=== PATIENT | male | born 1975 | race Caucasian/White ===

== ENCOUNTER → 2021-12-01 14:21 | Outpatient (BNVA) | payer MEDICARE, MEDICAID, SELFPAY | PROVIDERS: PCP Physician Assistant; Visit Provider Specialist | DX: G10 Huntington's disease (principal); G47.52 REM sleep behavior disorder | CPT/HCPCS: 99205 ==

== ENCOUNTER → 2022-07-19 09:38 | Outpatient (BNVA) | payer MEDICARE, MEDICAID, SELFPAY | PROVIDERS: PCP Physician Assistant; Visit Provider Specialist | DX: G10 Huntington's disease (principal); F98.8 Other specified behavioral and emotional disorders with onset usually occurring in childhood and adolescence; G47.52 REM sleep behavior disorder | CPT/HCPCS: 99214 ==

== ENCOUNTER 2022-09-25 09:18 | Emergency (ER) | payer MEDICARE, MEDICAID, SELFPAY ==
[2022-09-25 09:26] VITALS: BP 124/77; PULSE 98; RESP 14; TEMP 38.2; O2SAT 97
--- NOTE | 2022-09-25 09:42 | ED_ITS ---
HPI - Fever General: Chief Complaint: Fever Stated Complaint: sore throat Time Seen by Provider: 09/25/22 09:27 History of Present Illness: Patient is a 47-year-old male comes to the ED with fever. For the past 2 days patient has had a very sore throat, fevers and a headache. Denies any other symptoms. He has been able to keep p.o. food and fluids down and denies any vomiting. Associated symptoms: Deny abdominal pain, flank pain, chills, chest pain, diarrhea, dysuria, headache(s), nasal congestion, nausea or vomiting Review of Systems Const: Reports: fever(s); Denies: chills or fatigue Eyes: Denies: change in vision or eye discomfort ENMT: Reports: throat pain; Denies: odynophagia, nasal discharge or nasal congestion Card: Denies: chest pain, palpitations, edema, swelling of feet/ankles, dyspnea on exertion or orthopnea Resp: Denies: dyspnea, productive cough or non-productive cough GI: Denies: abdominal pain, nausea, vomiting, diarrhea, constipation or hematochezia : Denies: flank pain, difficulty urinating, dysuria or hematuria Musc: Denies: neck pain, back pain or extremity swelling Skin/Breast: Denies: rash or new lesions Neuro: Denies: headache(s), numbness in extremities or weakness in extremities PFS ED PFSH: Medical History Jake chorea Surgical History No pertinent past surgical history Social History Smoking and tobacco status: never smoked Physical Exam Const: COMMON NORMALS: patient oriented x3 and alert GENERAL APPEARANCE: cooperative HENMT: COMMON NORMALS: normocephalic HEAD & SCALP: normocephalic MOUTH: Normal oral and palatal mucosa present THROAT: uvula midline and posterior oropharynx abnormal erythema Neck/C-Spine: COMMON NORMALS: supple GENERAL: Yes normal visual inspection Resp: COMMON NORMALS: normal respiratory effort, No retractions, No use of accessory muscles and clear to auscultation bilaterally AUSCULTATION: clear to auscultation bilaterally Cardio: COMMON NORMALS: regular rate, regular rhythm, S1 normal heart sound present, S2 normal heart sound present, No gallops present (Cardio), No clicks present (Cardio), No murmurs present (Cardio) and Peripheral pulses 2+ throughout RATE: regular rate RHYTHM: regular rhythm HEART SOUNDS: S1 normal heart sound present and S2 normal heart sound present PERIPHERAL PULSES: Peripheral pulses 2+ throughout GI: COMMON NORMALS: Normal to inspection, nondistended, normoactive bowel sounds present, Soft to palpation, non-tender and no masses PALPATION: Yes Soft to palpation : COMMON NORMALS: Yes no CVA tenderness BLADDER/KIDNEY EXAM: Yes no CVA tenderness Back/Pelvis: COMMON NORMALS: no CVA tenderness Extremity: COMMON NORMALS: normal to inspection Neuro: COMMON NORMALS: patient oriented x3 SENSORIUM/ORIENTATION: Yes alert GAIT: Yes Normal gait present Skin: GENERAL SKIN EXAM: dry skin Course Vital Signs: Vital signs: Vital Signs Temperature 100.8 F H 09/25/22 09:26 Pulse Rate 98 09/25/22 09:26 Respiratory Rate 14 09/25/22 09:26 Blood Pressure 124/77 09/25/22 09:26 Pulse Oximetry 97 09/25/22 09:26 Oxygen Delivery Me thod 09/25/22 09:26 MDM - Fever Medical Decision Making Patient is a 47-year-old male comes to the ED with a fever and sore throat. Patient has a temperature of 100.8 but the rest of vitals are stable. Exam shows some posterior oropharynx erythema, but the rest of exam is benign. Strep and influenza are negative. COVID is positive. He was given a dose of Tylenol and prednisone here in the ED. Patient diagnosed with COVID-19 and discharged home with a prescription for prednisone. Told to follow-up with PCP in the next week for reevaluation. Return to ED precautions given. Patient understood agree with plan. Lab Data I reviewed the patient's lab results. Laboratory Results Influenza Type A Ag negative (Negative) 09/25/22 09:45 Influenza Type B Ag negative (Negative) 09/25/22 09:45 SARS-CoV-2 Ag (Rapid) positive (Negative) 09/25/22 09:45 Group A Strep Rapid Negative (Negative) 09/25/22 09:48 Discharge Plan Discharge Patient Disposition: Home Clinical Impression: COVID-19 Condition: Stable Prescriptions: New Medrol (Brandon) 4 mg tablets,dose pack See Rx Instructions .ROUTE .COMPLEX Qty: 21 0RF Rx Instructions: orally per package directions No Action lisinopril 10 mg tablet 10 mg PO DAILY olanzapine [Zyprexa] 5 mg tablet 5 mg PO DAILY 30 Days Qty: 30 3RF Rx Instructions: Take at bedtime tetrabenazine 12.5 mg tablet 12.5 mg PO BID Qty: 60 4RF clonazepam [Klonopin] 1 mg tablet 1 mg PO DAILY Qty: 30 5RF Discharge Orders: Discharge ED (Routine); Ordered 09/25/22 Ordered By: José Mcnair Referrals: Dara Meadows PA [Primary Care Provider] - Discharge Diet: Regular Discharge Activity: Increase activity as tolerated Patient Instructions: COVID-19 (Coronavirus Disease 2019) (ED) Activity Restrictions/Additional Instructions: Follow-up with medical provider as directed in the next 7 to 10 days for reevaluation. Take medications as prescribed. Return to the ER or your medical provider if condition worsens. Please read and understand discharge inst ructions. Thank you for choosing [facility] for your healthcare needs today. Please realize this is an emergency room and that we are providing you with a medical screening exam and this may not be complete and all inclusive of all the testing and or work up that you may need to determine your ailment or severity of your illness. It is very important that you follow up as instructed or that you return to the Emergency Department should you have concerns or if your condition changes or worsens in any way. Coding Level of Care Code ED Apartment [employer]oundskeeper for Kennedy Salazar Exam Comprehensive
[2022-09-25] MEDS: acetaminophen 500 mg Tablet 1000 MG PO (09:51)
[2022-09-25 10:23] LABS: Rapid Strep A Test Negative (Negative)
[2022-09-25 10:29] LABS: SARS Covid-2 Antigen positive (Negative)
[2022-09-25 10:30] LABS: Influenza A by IFA negative (Negative); Influenza B by IFA negative (Negative)
[2022-09-25] MEDS: predniSONE 20 mg Tablet 60 MG PO (10:55)
== END 2022-09-25 11:00 | disposition home or self-care (01) ==
PROVIDERS: Emergency Provider Physician Assistant; PCP Physician Assistant
DX: U07.1 COVID-19 (principal)
CPT/HCPCS: 87081; 87426; 87804; 87880; 99283; J7512

== ENCOUNTER → 2023-02-20 14:10 | Outpatient (BNVA) | payer MEDICARE, MEDICAID, SELFPAY | PROVIDERS: PCP Physician Assistant; Visit Provider Specialist | DX: G10 Huntington's disease (principal); F41.9 Anxiety disorder, unspecified; Z91.148 Patient's other noncompliance with medication regimen for other reason | CPT/HCPCS: 99213 ==

== ENCOUNTER → 2024-02-22 11:56 | Outpatient (BNVA) | payer MEDICARE, MEDICAID, SELFPAY | PROVIDERS: PCP Physician Assistant; Visit Provider Specialist | DX: G47.52 REM sleep behavior disorder (principal); R29.90 Unspecified symptoms and signs involving the nervous system; G10 Huntington's disease; G43.711 Chronic migraine without aura, intractable, with status migrainosus | CPT/HCPCS: 99214 ==

== ENCOUNTER → 2025-02-20 11:38 | Outpatient (BNVA) | payer MEDICARE, MEDICAID, SELFPAY | PROVIDERS: PCP Physician Assistant; Visit Provider Specialist | DX: G10 Huntington's disease (principal); R29.90 Unspecified symptoms and signs involving the nervous system; F17.200 Nicotine dependence, unspecified, uncomplicated | CPT/HCPCS: 99213 ==